=== PATIENT | male | born 1960 | race Caucasian/White ===

== ENCOUNTER 2016-10-01 01:13 | Emergency (ER) | payer OTHER ==
[2016-10-01] MEDS ORDERED: NS 1,000 ML IV ONE (01:24)
--- NOTE | 2016-10-01 01:29 | CPEKG ---
Heart Rate: 67 RR Interval: 896 P-R Interval: 184 QRSD Interval: 104 QT Interval: 440 QTC Interval: 465 P Newdale: -4 QRS Newdale: 61 T Wave Newdale: 53 EKG Severity - BORDERLINE ECG - EKG Impression: SINUS RHYTHM EKG Impression: BORDERLINE INFERIOR Q WAVES Electronically Signed By: Katharine Painting 01-Oct-2016 15:50:35
[2016-10-01 01:30] LABS: % IMMATURE GRANULYOCYTES 0.2 % (0.0-1.1); ABSOLUTE IMMATURE GRANULOCYTES 0.01 10^3/uL (0.00-0.10); ADD DIFF? NO; ADD MORPH? NO; ADD SCAN? NO; ATYPICAL LYMPHOCYTE FLAG 0 (0-99); FRAGMENT RBC FLAG 0 (0-99); HEMOGLOBIN 15.7 g/dL (13.7-17.5); LEFT SHIFT FLG 0 (0-99); LIPEMIA HEMOLYSIS FLAG 90 (0-99); MEAN CELL HEMOGLOBIN 31.3 pg (27.9-34.1); MEAN CELL HEMOGLOBIN CONCENTR. 34.1 g/dL (32.4-36.7); MEAN CELL VOLUME 91.6 fL (81.5-99.8); MEAN PLATELET VOLUME 10.9 fL (8.7-11.7); PLATELET CLUMPS FLAG 10 (0-99); PLATELET COUNT 222 10^3/uL (150-400); RED BLOOD CELL COUNT 5.02 10^6/uL (4.40-6.38); RED CELL DISTRIBUTION WIDTH 12.7 % (11.5-15.2)
[2016-10-01 01:32] VITALS: O2SAT 95
[2016-10-01 01:39] LABS: ALANINE AMINOTRANSFERASE 58 IU/L (21-72); ALBUMIN 3.8 g/dL (3.5-5.0); ALKALINE PHOSPHATASE 53 IU/L (38-126); ANION GAP 10 mEq/L (8-16); ASPARTATE AMINOTRANSFERASE 29 IU/L (17-59); BILIRUBIN,TOTAL 1.1 mg/dL (0.1-1.4); CALCIUM 8.5 mg/dL (8.5-10.4); CARBON DIOXIDE 21 mEq/l (22-31); CHLORIDE 110 mEq/L (97-110); CREATININE 0.9 mg/dL (0.7-1.3); GLOMERULAR FILTRATION RATE > 60; GLUCOSE 117 mg/dL (70-100); POTASSIUM 3.8 mEq/L (3.5-5.2); SODIUM 141 mEq/L (134-144)
--- NOTE | 2016-10-01 02:21 | EDPHY ---
H & P Stated Complaint: syncope Time Seen by Provider: 10/01/16 01:23 HPI/ROS: HPI The patient presents with diarrhea and 3 syncopal episodes. He is brought in by ambulance after receiving a 750 mL bolus of normal saline. He has had 3 days of nonbloody diarrhea which has been profuse, with episodes about every 1 hour. Today, he felt lightheaded and had to lower himself to the ground. This happened 2 additional times and he does believe he lost consciousness. He denies any chest pain, shortness of breath, palpitations. When paramedics arrived he was hypotensive in the 80s over 50s. He felt worse when he sat up. He now feels better after receiving the fluids. He does not have any abdominal pain or vomiting.. REVIEW OF SYSTEMS Constitutional: No fever, no chills. Eyes: No discharge. ENT: No sore throat. Cardiovascular: No chest pain, no palpitations. Respiratory: No cough, no shortness of breath. Gastrointestinal: No abdominal pain, no vomiting. Genitourinary: No hematuria. Musculoskeletal: No back pain. Skin: No rashes. Neurological: No headache. PMHx: History of pulmonary embolism PHYSICAL General Appearance: Alert, no distress Eyes: Pupils equal and round no pallor or injection ENT, Mouth: Mucous membranes moist Respiratory: There are no retractions, lungs are clear to auscultation Cardiovascular: Regular rate and rhythm Gastrointestinal: Abdomen is soft and non-tender, no masses, bowel sounds normal Neurological: A&O, moves all extremities Skin: Warm and dry, no rashes Musculoskeletal: Neck is supple non tender Extremities: symmetrical, full range of motion Psychiatric: Patient is oriented X 3, there is no agitation Source: Patient, EMS Exam Limitations: No limitations - Personal History Current Tetanus/Diphtheria Vaccine: Yes Current Tetanus Diphtheria and Acellular Pertussis (TDAP): Yes - Medical/Surgical History Hx Asthma: No Hx Chronic Respiratory Disease: No Hx Diabetes: No Hx Cardiac Disease: No Hx Renal Disease: No Hx Cirrhosis: No Hx Alcoholism: No Hx HIV/AIDS: No Hx Splenectomy or Spleen Trauma: No Other PMH: med hx-HTN, Gerd,PE-10/2014. surg-none - Social History Smoking Status: Never smoked Constitutional: Initial Vital Signs Temperature (C) 36.3 C 10/01/16 01:30 Heart Rate 69 10/01/16 01:30 Respiratory Rate 16 10/01/16 01:30 Blood Pressure 118/68 10/01/16 01:30 O2 Sat (%) 95 10/01/16 01:30 O2 Delivery Mode Room Air Allergies/Adverse Reactions: No Known Allergies Allergy (Verified 10/01/16 01:29) Home Medications: Medication Instructions Recorded Lisinopril [Zestril 20 mg (*)] 20 mg PO DAILY 11/03/14 Multivitamins [Multivitamin (*)] 1 each PO DAILY 11/03/14 Amlodipine Besylate 10/01/16 Gabapentin 10/01/16 Medical Decision Making - Diagnostics EKG Interpretation: EKG: Complete interpretation has been separately recorded in the [facility] archive. Summary impression: Normal sinus rhythm Differential Diagnosis: This is a relatively healthy 56-year-old male with history of hypertension, GERD , pulmonary embolism who presents brought in by ambulance for 3 syncopal episodes earlier today. This is in the setting of 3 days of profuse diarrhea. He was hypotensive upon arrival of paramedics, however is normotensive here. He is feeling much better after receiving fluid in the ambulance. Differential diagnosis includes vasovagal episode, arrhythmia, hypovolemia, less likely pulmonary embolism given no chest pain, shortness of breath. In the emergency room, the patient was given additional L of IV fluid. Labs were checked and were unremarkable. He had no events on the quality assurance monitor. He was not able to produce any further diarrhea for specimen collection. His abdominal exam continues to be benign. He will be discharged from the emergency room in good condition. I feel his syncope was related to hypovolemia from his profuse diarrhea. - Data Points Laboratory Results: Laboratory Results 10/01/16 01:20 10/01/16 01:20 10/01/16 10/01/16 01:20 01:20 WBC 6.21 10^3/uL 10^3/uL (3.80-9.50) RBC 5.02 10^6/uL 10^6/uL (4.40-6.38) Hgb 15.7 g/dL g/dL (13.7-17.5) Hct 46.0 % % (40.0-51.0) MCV 91.6 fL fL (81.5-99.8) MCH 31.3 pg pg (27.9-34.1) MCHC 34.1 g/dL g/dL (32.4-36.7) RDW 12.7 % % (11.5-15.2) Plt Count 222 10^3/uL 10^3/uL (150-400) MPV 10.9 fL fL (8.7-11.7) Neut % (Auto) 61.4 % % (39.3-74.2) Lymph % (Auto) 23.3 % % (15.0-45.0) Lewis % (Auto) 9.3 % % (4.5-13.0) Eos % (Auto) 5.0 % % (0.6-7.6) Baso % (Auto) 0.8 % % (0.3-1.7) Nucleat RBC Rel Count 0.0 % % (0.0-0.2) Absolute Neuts (auto) 3.81 10^3/uL 10^3/uL (1.70-6.50) Absolute Lymphs (auto) 1.45 10^3/uL 10^3/uL (1.00-3.00) Absolute Monos (auto) 0.58 10^3/uL 10^3/uL (0.30-0.80) Absolute Eos (auto) 0.31 10^3/uL 10^3/uL (0.03-0.40) Absolute Basos (auto) 0.05 10^3/uL 10^3/uL (0.02-0.10) Absolute Nucleated RBC 0.00 10^3/uL 10^3/uL (0-0.01) Immature Gran % 0.2 % % (0.0-1.1) Immature Gran # 0.01 10^3/uL 10^3/uL (0.00-0.10) Sodium 141 mEq/L mEq/L (134-144) Potassium 3.8 mEq/L mEq/L (3.5-5.2) Chloride 110 mEq/L mEq/L (97-110) Carbon Dioxide 21 mEq/l L mEq/l (22-31) Anion Gap 10 mEq/L mEq/L (8-16) BUN 11 mg/dL mg/dL (7-23) Creatinine 0.9 mg/dL mg/dL (0.7-1.3) Estimated GFR > 60 Glucose 117 mg/dL H mg/dL (70-100) Calcium 8.5 mg/dL mg/dL (8.5-10.4) Total Bilirubin 1.1 mg/dL mg/dL (0.1-1.4) AST 29 IU/L IU/L (17-59) ALT 58 IU/L IU/L (21-72) Alkaline Phosphatase 53 IU/L IU/L (38-126) Total Protein 6.0 g/dL L g/dL (6.3-8.2) Albumin 3.8 g/dL g/dL (3.5-5.0) Medications Given: Discontinued Medications Sodium Chloride (Ns) 1,000 mls @ 0 mls/hr IV ONCE ONE PRN Reason: Wide Open Stop: 10/01/16 01:25 Last Admin: 10/01/16 01:33 Dose: 1,000 mls Departure - Departure Disposition: Home, Routine, Self-Care Clinical Impression: Diarrhea Qualifiers: Diarrhea type: unspecified type Qualified Code(s): R19.7 - Diarrhea, unspecified Hypotension Qualifiers: Hypotension type: unspecified hypotension type Qualified Code(s): I95.9 - Hypotension, unspecified Syncope Qualifiers: Syncope type: unspecified Qualified Code(s): R55 - Syncope and collapse Condition: Good Instructions: Dehydration (ED) Additional Instructions: Please return to the emergency room if your worse in any way. Make sure to drink plenty of fluids. You can take Imodium as needed for your diarrhea. Referrals: Patient,NotPresent [Unknown] - As per Instructions
[2016-10-01 02:45] VITALS: BP 124/74; PULSE 66; RESP 18; TEMP 97.2
== END 2016-10-01 02:45 | disposition home or self-care (01) ==
LOC: EDUNIT#
DX: R55 Syncope and collapse (principal); R19.7 Diarrhea, unspecified; I95.9 Hypotension, unspecified; I10 Essential (primary) hypertension

== ENCOUNTER 2016-11-08 18:18 | Emergency (ER) | payer OTHER ==
[2016-11-08 18:28] VITALS: RESP 16
--- NOTE | 2016-11-08 19:17 | EDPHY ---
H & P Stated Complaint: blurred vision r eye since thursday Time Seen by Provider: 11/08/16 18:45 HPI/ROS: CHIEF COMPLAINT: Floaters HISTORY OF PRESENT ILLNESS: The patient is a 56-year-old man who comes to the emergency department with his complaining of visual floater in his right eye. He sees a dark spot when he looks at the computer screen or paper. It moves throughout his peripheral vision. He has normal visual acuity. No eye pain. No focal weakness or deficits. History of nearsightedness only. REVIEW OF SYSTEMS: Constitutional: denies: chills, fever, recent illness, recent injury EENTM: See HPI Respiratory: denies: cough, shortness of breath Cardiac: denies: chest pain, irregular heart rate, lightheadedness, palpitations Gastrointestinal/Abdominal: denies: abdominal pain, diarrhea, nausea, vomiting, blood streaked stools Genitourinary: denies: dysuria, frequency, hematuria, pain Musculoskeletal: denies: joint pain, muscle pain Skin: denies: lesions, rash, jaundice, bruising Neurological: denies: headache, numbness, paresthesia, tingling, dizziness, weakness Hematologic/Lymphatic: denies: blood clots, easy bleeding, easy bruising Immunologic/allergic: denies: HIV/AIDS, transplant EXAM: GENERAL: Well-appearing, well-nourished and in no acute distress. HEAD: Atraumatic, normocephalic. EYES: Pupils equal round and reactive to light, extraocular movements intact, sclera anicteric, conjunctiva are normal. Normal retinal exam, intra-ocular pressure 10 on Cabrera-Pen. Ultrasound performed and no visible detachment or hemorrhage or lens detachment. Visual acuity 20/25 in each eye . ENT: TMs normal, nares patent, oropharynx clear without exudates. Moist mucous membranes. NECK: Normal range of motion, supple without lymphadenopathy or JVD. LUNGS: Breath sounds clear to auscultation bilaterally and equal. No wheezes rales or rhonchi. HEART: Regular rate and rhythm without murmurs, rubs or gallops. ABDOMEN: Soft, nontender, normoactive bowel sounds. No guarding, no rebound. No masses appreciated. BACK: No CVA tenderness, no spinal tenderness, step-offs or deformities EXTREMITIES: Normal range of motion, no pitting or edema. No clubbing or cyanosis. NEUROLOGICAL: Cranial nerves II through XII grossly intact. Normal speech, normal gait. 5/5 strength, normal movement in all extremities, normal sensation PSYCH: Normal mood, normal affect. SKIN: Warm, dry, normal turgor, no visible rashes or lesions. Source: Patient Exam Limitations: No limitations - Personal History Current Tetanus/Diphtheria Vaccine: Yes - Medical/Surgical History Hx Asthma: No Hx Chronic Respiratory Disease: No Hx Diabetes: No Hx Cardiac Disease: No Hx Renal Disease: No Hx Cirrhosis: No Hx Alcoholism: No Hx HIV/AIDS: No Hx Splenectomy or Spleen Trauma: No Other PMH: med hx-HTN, Gerd,PE-10/2014. surg-none - Family History Significant Family History: No pertinent family hx - Social History Smoking Status: Never smoked Alcohol Use: Sober Drug Use: None Constitutional: Initial Vital Signs Temperature (C) 36.8 C 11/08/16 18:25 Heart Rate 77 11/08/16 18:25 Respiratory Rate 16 11/08/16 18:25 Blood Pressure 118/81 H 11/08/16 18:25 O2 Sat (%) 94 11/08/16 18:25 O2 Delivery Mode Room Air Allergies/Adverse Reactions: No Known Allergies Allergy (Verified 11/08/16 18:25) Home Medications: Medication Instructions Recorded Lisinopril [Zestril 20 mg (*)] 20 mg PO DAILY 11/03/14 Multivitamins [Multivitamin (*)] 1 each PO DAILY 11/03/14 Amlodipine Besylate 10/01/16 Gabapentin 10/01/16 Medical Decision Making ED Course/Re-evaluation: I discussed the case with Dr. Garzon from Ophthalmology. He recommends follow- up in his office on Thursday morning. This is likely vitreous detachment. He does not think it is related to the patient's family history of macular degeneration. Patient and understand agree with this plan. They declined further workup or testing at this time. Differential Diagnosis: Partial list of the Differential diagnosis considered include but were not limited to; retinal detachment, macular degeneration, vitrial detachment and although unlikely based on the history and physical exam, I also considered amaurosis fugax, CVA, glaucoma, lens detachment, retinal hemorrhage, central retinal artery occlusion. I discussed these differential diagnoses and the plan with the patient as well as the usual and expected course. The patient understands that the diagnosis is provisional and that in medicine we are not always correct and that further workup is often warranted. Usual and customary warnings were given. All of the patient's questions were answered. The patient was instructed to return to the emergency department should the symptoms at all worsen or return, otherwise to followup with the physician as we discussed. Departure - Departure Disposition: Home, Routine, Self-Care Clinical Impression: Vitreous detachment of right eye Condition: Fair Instructions: Visual Floaters (ED) Referrals: Eve Cabral PA [Primary Care Provider] - As per Instructions Ruthie Garzon MD [Medical Doctor] - 1-2 days without fail (Thursday)
[2016-11-08 19:36] VITALS: BP 115/80; PULSE 73; TEMP 98.1; O2SAT 97
== END 2016-11-08 19:35 | disposition home or self-care (01) ==
DX: H43.811 Vitreous degeneration, right eye (principal); I10 Essential (primary) hypertension

== ENCOUNTER → 2018-02-12 | Outpatient (CLI) | payer OTHER ==
[~2018-02-12] MED LIST: IOPAMIDOL (ISOVUE-300) 100 ML BTL ONE
== END ==
LOC: FIMAGING 14:31
PROVIDERS: ATTEND Urology
DX: R31.9 Hematuria, unspecified (principal); N32.89 Other specified disorders of bladder
CPT/HCPCS: Q9967

== ENCOUNTER → 2018-07-13 | Outpatient (CLI) | payer OTHER | LOC: FIMAGING 14:26 → EDSTATUS 14:28 | PROVIDERS: ATTEND Nurse Practitioner | DX: J40 Bronchitis, not specified as acute or chronic (principal); Z85.51 Personal history of malignant neoplasm of bladder; Z86.711 Personal history of pulmonary embolism ==

== ENCOUNTER 2018-09-06 13:16 | Day surgery (SDC) | payer OTHER ==
[~2018-09-06 13:16] MED LIST changes: -IOPAMIDOL (ISOVUE-300) 100 ML BTL ONE; +mitoMYcin 40 MG in NS (SYRINGE) 20 ML TP ONE
[2018-09-06] MEDS ORDERED: levOFLOXACIN 500 MG/DEXTROSE/100 ML BAG IV ONE (13:31)
[2018-09-06] MEDS ORDERED: LR 1,000 ML IV ONE (13:38)
[2018-09-06] MEDS ORDERED: SODIUM BICARBONATE 650 MG TAB PO ONE (14:00)
[2018-09-06] MEDS ORDERED: levOFLOXACIN 500 MG/DEXTROSE 100 ML IV ONE (14:18)
[2018-09-06] MEDS ORDERED: OPIUM/BELLADONNA ALKALO SUPP PR ONE ×2 (14:19→16:47)
[2018-09-06] MEDS ORDERED: LIDOCAINE 2% JELLY 20 ML (UROJECT) ONE (14:21)
--- NOTE | 2018-09-06 14:48 | PDANEPAE ---
ANE History of Present Illness cancer of the bladder, here for TURP ANE Past Medical History - Cardiovascular History Hx Hypertension: Yes Hx Arrhythmias: No Hx Chest Pain: No Hx Coronary Artery / Peripheral Vascular Disease: No Hx CHF / Valvular Disease: No Hx Palpitations: No - Pulmonary History Hx COPD: No Hx Asthma/Reactive Airway Disease: No Hx Recent Upper Respiratory Infection: No Hx Oxygen in Use at Home: No Hx Sleep Apnea: No - Neurologic History Hx Cerebrovascular Accident: No Hx Seizures: No Hx Dementia: No - Endocrine History Hx Diabetes: No - Renal History Hx Renal Disorders: No - Liver History Hx Hepatic Disorders: No - Neurological & Psychiatric Hx Hx Neurological and Psychiatric Disorders: No - Cancer History Hx Cancer: Yes Cancer History Comment: Bladder - Congenital Disorder History Hx Congenital Disorders: No - GI History Hx Gastrointestinal Disorders: Yes Gastrointestinal History Comment: GERD - Chronic Pain History Chronic Pain: No - Surgical History Prior Surgeries: TURP. Ankle ANE Review of Systems Review of Systems: - Exercise capacity METS (RN): 4 METS ANE Patient History - Allergies Allergies/Adverse Reactions: No Known Allergies Allergy (Verified 11/08/16 18:25) - Home Medications Home Medications: Multivitamins [Multivitamin (*)] 1 each PO DAILY 11/03/14 [Last Taken 1 Week Ago ~08/30/18] Amlodipine Besylate 10/01/16 [Last Taken 09/06/18] Gabapentin 10/01/16 [Last Taken 09/05/18] Losartan Potassium 09/06/18 [Last Taken 09/06/18] - NPO status NPO Since - Liquids (Date): 09/06/18 NPO Since - Liquids (Time): 09:00 NPO Since - Solids (Date): 09/06/18 NPO Since - Solids (Time): 05:30 - Smoking Hx Smoking Status: Former smoker - Family Anes Hx Family Hx Anesthesia Complications: None ANE Labs/Vital Signs - Vital Signs Blood Pressure: 131/73 Heart Rate: 68 Respiratory Rate: 16 O2 Sat (%): 95 Height: 187.96 cm Weight: 113.398 kg ANE Physical Exam - Airway Neck exam: FROM Mallampati Score: Class 3 Mouth exam: normal dental/mouth exam - Pulmonary Pulmonary: no respiratory distress, no rales or rhonchi - Cardiovascular Cardiovascular: regular rate and rhythym, no murmur, rub, or gallop - ASA Status ASA Status: II ANE Anesthesia Plan Anesthesia Plan: GA w LMA Total IV Anesthesia: No
[2018-09-06] MEDS ORDERED: MIDAZOLAM 2 MG/2 ML VIAL IVP ONE (14:49)
[2018-09-06] MEDS ORDERED: PROPOFOL 200 MG/20 ML VIAL ONE (16:02)
--- NOTE | 2018-09-06 16:20 | PDHPUP ---
History & Physical Update H&P update statement: This history and physical update is based on an assessment of the patient which was completed after admission or registration (within 24 hours), but prior to the surgery/procedure. H&P update: H&P reviewed & patient examined, no change in patient's condition since H&P completed
[2018-09-06] MEDS ORDERED: fentaNYL 100 MCG/2 ML INJ ONE (16:28)
[2018-09-06] MEDS ORDERED: LIDOCAINE 2% 2 ML INJ ONE ×3 (16:41)
[2018-09-06] MEDS ORDERED: DEXAMETHASONE 4 MG/ML VIAL ONE (16:42)
[2018-09-06] MEDS ORDERED: ONDANSETRON 4 MG/2 ML VIAL ONE (16:42)
[2018-09-06] MEDS ORDERED: ePHEDrine SULFATE 25 MG/5 ML SYR ONE (16:50)
[2018-09-06] MEDS ORDERED: PHENYLEPHRINE HCL 100 MCG/ML SYR ONE (17:00)
[2018-09-06] MEDS ORDERED: METHYLENE BLUE 0.5% 50 MG/10 ML AMP ONE (17:15)
[2018-09-06] MEDS ORDERED: LABETALOL HCL 5 MG/ML 20 ML MDV IVP PRN (17:20)
[2018-09-06] MEDS ORDERED: ALBUTEROL 3 ML DEYVIAL IH PRN (17:20)
[2018-09-06] MEDS ORDERED: LR 500 ML IV PRN (17:20)
[2018-09-06] MEDS ORDERED: NALOXONE HCL 0.4 MG/ML INJ IVP PRN (17:20)
[2018-09-06] MEDS ORDERED: ACETAMINOPHEN 500 MG TAB PO PRN (17:20)
[2018-09-06] MEDS ORDERED: fentaNYL 100 MCG/2 ML INJ IVP PRN (17:20)
[2018-09-06] MEDS ORDERED: PROMETHAZINE HCL 25 MG/ML INJ IVP PRN (17:20)
[2018-09-06] MEDS ORDERED: PHENYLEPHRINE HCL 100 MCG/ML SYR IVP PRN (17:20)
[2018-09-06] MEDS ORDERED: oxyCODONE IR 5 MG TAB PO PRN (17:20)
[2018-09-06] MEDS ORDERED: DEXAMETHASONE 4 MG/ML VIAL IVP PRN (17:20)
[2018-09-06] MEDS ORDERED: METOCLOPRAMIDE 10 MG/2 ML VIAL IVP PRN (17:20)
[2018-09-06] MEDS ORDERED: HYDROmorphONE/DILAUDID 2 MG/ML INJ IVP PRN (17:20)
[2018-09-06] MEDS ORDERED: MEPERIDINE 25 MG/0.5 ML AMP IVP PRN (17:20)
[2018-09-06] MEDS ORDERED: ONDANSETRON 4 MG/2 ML VIAL IVP PRN (17:20)
[2018-09-06] MEDS ORDERED: LIDOCAINE 2% JELLY 20 ML (UROJECT) UR ONE (17:31)
--- NOTE | 2018-09-06 17:40 | POSTANESTH ---
Post Anesthetic Evaluation Cardiovascular Status: Normal, Stable Respiratory Status: Normal, Stable Level of Consciousness/Mental Status: Can Participate in Eval Pain Control: Adequate, Prn Tx Ordered Nausea/Vomiting Control: Adequate, Prn Tx Ordered Complications Possibly Related to Anesthesia: None Noted
--- NOTE | 2018-09-06 18:07 | POSTOPPROG ---
Post Op Note Date of Operation: 09/06/18 Surgeon: Annie White Anesthesia: GET(General Endotracheal) Pre-op Diagnosis: bladder tumor Post-op Diagnosis: same Indication: recurrent bladder tumor Procedure: cysto, TURBT and bladder biopsy Findings: 2 tumors, each 0.5cm., bx around left UO sent for frozen=benign Inf/Abcess present in the surg proc area at time of surgery?: No EBL: Minimal Complications: None, patient tolerated procedure well. Drains: Other (gillette)
--- NOTE | 2018-09-06 18:10 | SOAPPROG ---
SOAP Progress Note Assessment/Plan: Assessment: S/P TURBT 40mg Mitomycin C instilled intravesically in PACU at 6pm. Plan: Dwell time 1hr, he should change positions to ensure coverage of bladder w MMC. 09/06/18 18:07 Subjective: Post TURBT Objective: Vital Signs Temp Pulse Resp BP Pulse Ox 36.5 C 68 24 H 125/65 H 95 09/06/18 17:33 09/06/18 16:54 09/06/18 17:46 09/06/18 17:46 09/06/18 17:46 Using sterile technique, 40mg MMC in 20ml of NS instilled into bladder through gillette catheter. Patient tolerated procedure well. ICD10 Worksheet Patient Problems: Problems Problem Status Onset Pulmonary embolism Acute
[2018-09-06 19:18] VITALS: BP 112/59
--- NOTE | 2018-09-08 08:24 | GOP ---
[f rep st] OPERATIVE REPORT DATE OF OPERATION: 09/06/2018 SURGEON: Annie White MD ANESTHESIA: General ANESTHESIOLOGIST: Estrada Navarro MD PREOPERATIVE DIAGNOSIS: Bladder tumor. POSTOPERATIVE DIAGNOSIS: Bladder tumor. PROCEDURE PERFORMED: Cystoscopy, transurethral resection of bladder tumor, small, and bladder biopsi es. FINDINGS: Two tumors, each 0.5 cm, and both of these papillary on a stalk. Biopsy around the left u reteral orifice sent for frozen and was reported as benign by Pathology. ESTIMATED BLOOD LOSS: Minimal. INDICATIONS: Recurrent bladder tumor. DESCRIPTION OF PROCEDURE: The patient was seen in the preoperative holding area, where the rationale , risks, and benefits were discussed in detail. Risks included bleeding, infection, pain, injury to the urethra or the bladder, the ureteral orifices, need for a left stent, possible need for diagnosti c left ureteroscopy, bladder perforation, need for subsequent procedures, placing mitomycin which may lead to dysuria, and need for repeat procedures. He understood this and agreed to proceed. The pat ient was taken back to the cystoscopy suite, placed on the cystoscopy table in the supine position. General anesthesia was induced without complication. Time-out performed. Core measures satisfied, i ncluding placement of a Gina Hugger, SCDs, and administration of Levaquin antibiotics. He was becky t to the end of the table, placed in a dorsal lithotomy position, all pressure points padded. Genita dar draped and prepped in a standard surgical fashion with Betadine. A rigid cystoscope easily cannu lated the urethral meatus and was advanced atraumatically into the bladder. A flexible biopsy graspe r was advanced through the cystoscope into the left ureteral orifice, where 4 biopsies were taken cynthia und the left ureteral orifice. They did not include the inside of the ureteral orifice. These biops y specimens were sent off to Pathology for frozen. Then the cystoscope was removed and a TURis resec toscope was placed into the bladder with visual obturator. The loop was assembled. Pancystoscopy was performed and the 2 tumors that I had seen in my office were easily identified, one in the left late ral wall that was not near prior resection, and one on the posterior wall, that again was not involve d in the prior resection. I resected both of these tumors. I sent a superficial sample and then a d eep sample, and I made sure that my deep sample did include muscle. I used electrocautery liberally in the tumor bed, as well as on the periphery. Hemostasis was excellent. There was a small amount o f oozing from the left ureteral orifice surrounding cold biopsies. I watched for ureteral efflux fro m the left ureter and verified where the UO was, and then there was an area that was not at the UO bu t was near it, that I did just gently touch with cautery and the oozing of this area stopped, as it w as an area where I had biopsied. I again watched the left ureteral orifices and there was normal eff lux of the left ureter of urine. The right ureter was not touched during the procedure. The frozen pathology came back as benign. At this point, I felt the procedure was considered complete. All the tumor pieces were gathered as stated and sent as superficial and deep separately. There were no oth er tumor pieces in the bladder. The bladder was emptied. A Treviño catheter was placed. Belladonna a nd opium were placed per rectum. At this point, the procedure was considered complete. He was awoke n from anesthesia and transferred to PACU in good condition. COMPLICATIONS: None. DRAINS: Treviño catheter. INDICATIONS FOR PROCEDURE: Mr. Reynolds is a patient of mine who underwent a very large TURBT, whic h was a TA noninvasive bladder cancer. He underwent surveillance cystoscopy and 2 small tumors with were found that were papillary on a stalk. Recommended management was removal of these tumors. Ther e was also abnormal-appearing tissue around the left ureteral orifice, which is where the prior tumor had closely approached, but did not invade the left ureteral orifice. There were some questions whe ther this was tumor tissue or just scar from prior resection. /[id number]/MODL
== END 2018-09-06 19:49 | disposition home or self-care (01) ==
LOC: FSGY 13:16
PROVIDERS: ATTEND Urology
PROC: 0TBB8ZZ Excision of Bladder, Via Natural or Artificial Opening Endoscopic (ICD-10-PCS; principal; 2018-09-06 15:00)
DX: C67.9 Malignant neoplasm of bladder, unspecified (principal); N30.20 Other chronic cystitis without hematuria; K21.9 Gastro-esophageal reflux disease without esophagitis; E78.5 Hyperlipidemia, unspecified; Z86.711 Personal history of pulmonary embolism
CPT/HCPCS: J1100; J1956; J2250; J2370; J2405; J2704; J3010; Q9968

== ENCOUNTER → 2018-11-15 | Outpatient (CLI) | payer OTHER ==
[~2018-11-15] MED LIST changes: +GADOBUTROL 10 ML VIAL IVP ONE; -mitoMYcin 40 MG in NS (SYRINGE) 20 ML TP ONE
== END ==
LOC: FIMAGING 07:36
PROVIDERS: ATTEND Urology
DX: R97.20 Elevated prostate specific antigen [PSA] (principal)
CPT/HCPCS: A9585